=== PATIENT | female | born 1990 | race Two or more races ===

== ENCOUNTER 2020-12-06 10:19 | Emergency (ER) | payer OTHER ==
[~2020-12-06] VITALS: Ht 157.5 cm; Wt 68.0 kg
[2020-12-06] MEDS ORDERED: MULTI VITAMIN1 EACH PO (10:58)
[2020-12-06] MEDS ORDERED: DICLOFENAC POTA50 MG PO (17:18)
[2020-12-06] MEDS ORDERED: PEPCID AC20 MG PO (17:18)
== END 2020-12-06 17:30 ==
LOC: ER 10:19
DX: N92.6 Irregular menstruation, unspecified (principal); R10.32 Left lower quadrant pain

== ENCOUNTER 2021-07-09 12:16 | Outpatient (CLI) | payer OTHER ==
[~2021-07-09 12:16] MED LIST: DICLOFENAC POTA50 MG PO; MULTI VITAMIN1 EACH PO; PEPCID AC20 MG PO
== END 2021-07-09 15:20 | disposition home or self-care (01) ==
LOC: PRENATAL 12:16
PROVIDERS: ATTEND Obstetrics & Gynecology Maternal & Fetal Medicine
DX: O35.0XX0 Maternal care for (suspected) central nervous system malformation in fetus, not applicable or unspecified (principal); O35.3XX0 Maternal care for (suspected) damage to fetus from viral disease in mother, not applicable or unspecified

== ENCOUNTER → 2021-08-14 | Outpatient (CLI) | payer OTHER | END | disposition home or self-care (01) | LOC: PRENATAL 08:00 | PROVIDERS: ATTEND Obstetrics & Gynecology Maternal & Fetal Medicine | DX: O35.0XX0 Maternal care for (suspected) central nervous system malformation in fetus, not applicable or unspecified (principal); Z3A.20 20 weeks gestation of pregnancy; O35.3XX0 Maternal care for (suspected) damage to fetus from viral disease in mother, not applicable or unspecified ==

== ENCOUNTER 2021-12-14 13:45 | Inpatient (IN) | payer OTHER ==
[~2021-12-14] VITALS: Ht 160 cm; Wt 3.2 kg
[2022-01-01] MEDS ORDERED: FOLIC ACID0.8 M1 PO (08:29)
[2022-01-01] MEDS ORDERED: PRENATAL TABLE1 EAC1 PO (08:29)
== END 2022-01-04 12:21 | disposition home or self-care (01) | DRG 788 ==
LOC: OB/GYN 12-28 13:45 → LDR 01-01 07:34 → OB/GYN 01-01 13:16
PROVIDERS: ADMIT Obstetrics & Gynecology; ATTEND Obstetrics & Gynecology
PROC: 4A1HXCZ Monitoring of Products of Conception, Cardiac Rate, External Approach (ICD-10-PCS; 2022-01-01)
PROC: 10D00Z1 Extraction of Products of Conception, Low, Open Approach (ICD-10-PCS; principal; 2022-01-02 15:00)
DX: O33.8 Maternal care for disproportion of other origin (principal); O48.0 Post-term pregnancy; Z3A.40 40 weeks gestation of pregnancy; Z37.0 Single live birth; Z20.822 Contact with and (suspected) exposure to COVID-19